=== PATIENT | female | born 1940 | race American Indian/Alaskan Native ===

== ENCOUNTER 2020-08-01 07:00 | Day surgery (SDC) | payer MEDICARE, OTHER ==
[2020-08-01] MEDS ORDERED: ceFAZolin/STERILE WATER 2 GM/20 ML SYRINGE IV NR (08:30)
[2020-08-01] MEDS ORDERED: LACTATED RINGERS 1,000 ML IV SCH (09:00)
--- NOTE | 2020-08-01 09:03 | Anesthesia Day of Surgery ---
Anesthesia Day of Surgery - Day of Surgery Patient Examined: Yes Patient H&P Reviewed: Yes Patient is NPO: Yes
--- NOTE | 2020-08-01 09:03 | Anesthesia Consultation ---
Anesthesia Consult and Med Hx Date of service: 08/01/20 - Airway Anesthetic Teeth Evaluation: Partials ROM Head & Neck: Adequate Mental/Hyoid Distance: Adequate Mallampati Class: Class I Intubation Access Assessment: Good - Pre-Operative Health Status ASA Pre-Surgery Classification: ASA2 Proposed Anesthetic Plan: General - Pulmonary Hx Smoking: No Hx Asthma: No Hx Respiratory Symptoms: No (+2FS) COPD: No Hx Pneumonia: No Hx Sleep Apnea: No (LUKAS PRE SCREEN LOW RISK) - Cardiovascular System Hx Hypertension: No Hx Heart Attack/AMI: No Hx Pacemaker: No Hx Internal Defibrillator: No Hx Heart Murmur: No - Central Nervous System Hx Seizures: No Hx Back Pain: No Hx Psychiatric Problems: No - Gastrointestinal Hx Gastroesophageal Reflux Disease: No - Endocrine Hx End Stage Renal Disease: No Hx Cirrhosis: No Hx Liver Disease: No Hx Thyroid Disease: Yes Hx Hypothyroidism: Yes - Hematic Hx Anemia: No Hx Sickle Cell Disease: No - Other Systems Hx Alcohol Use: No Hx Substance Use: No Hx Cancer: No Hx Obesity: No
[2020-08-01] MEDS ORDERED: HYDROmorphone 1 MG/1 ML INJ IV PRN ×2 (09:04)
[2020-08-01] MEDS ORDERED: ONDANSETRON 4 MG/2 ML INJ IV PRN (09:04)
[2020-08-01] MEDS ORDERED: fentaNYL 100 MCG/2 ML INJ ONE (09:31)
[2020-08-01] MEDS ORDERED: GLYCOPYRROLATE 0.4 MG/2 ML INJ ONE (09:31)
[2020-08-01] MEDS ORDERED: PHENYLEPHRINE/NS 1,000 MCG/10 ML SYRINGE (OR USE) IV ONE (09:31)
[2020-08-01] MEDS ORDERED: ONDANSETRON 4 MG/2 ML INJ ONE (09:31)
[2020-08-01] MEDS ORDERED: propofoL 200 MG/20 ML VIAL IV ONE (09:31)
[2020-08-01] MEDS ORDERED: LIDOCAINE MPF (2%) 20 MG/1 ML VIAL 5 ML ONE (09:31)
[2020-08-01] MEDS ORDERED: dexAMETHasone 20 MG/5 ML VIAL ONE (09:31)
[2020-08-01] MEDS ORDERED: WATER FOR IRRIG STERILE 2000 ML IR ONE ×2 (09:37)
[2020-08-01] MEDS ORDERED: WATER FOR IRRIG STERILE 1,500 ML BOTTLE IR ONE (09:37)
--- NOTE | 2020-08-01 11:25 | Fluoroscopy Report ---
Retrograde urography fluoroscopy INDICATION: Acute pelvic pain cystitis. Hematuria. IMPRESSION: Bilateral retrograde ureterograms performed which demonstrated no significant filling def ect aside from injected gas. Urinary bladder was only partially fluid distended Fluoroscopy time: 31 seconds. Fluoroscopic images: 6. Signer Name: Ravi Terrell MD Signed: 08/01/2020 11:20 AM Workstation Name: [id number]
--- NOTE | 2020-08-01 11:46 | Operative Report ---
PREOPERATIVE DIAGNOSIS: Suprapubic bladder pain. POSTOPERATIVE DIAGNOSES: Suprapubic bladder pain with the lesion, erythema anterior wall where the pain is. PROCEDURES: Cystoscopy, multiple bladder biopsies, excision and fulguration of anterior wall lesion, which was flat and erythematous and insertion of catheter retrograde. SURGEON: Dr. Billings. ANESTHESIA: General. FINDINGS: This is a woman with suprapubic pain and discomfort, especially with voiding. She now presents for treatment. DESCRIPTION OF PROCEDURE: The patient was brought to the operating room and placed on the operating table. Following induction of anesthesia, placed in lithotomy position, prepped and draped in usual sterile fashion. Cystourethroscopy showed this irregular reddened area anterior wall of the bladder. This was biopsied and very friable. It started bleeding before and just by distending the bladder. We cauterized it. The right and left lateral wall biopsies were obtained, which were random. Retrograde showed good filling, good drainage with some air bubbles on the left side. The patient tolerated the procedure well. A 20-German catheter was placed, brought to recovery in stable condition. JOB# [id number] GRIFFIN/OLIVIA
[2020-08-01] MEDS ORDERED: HYDROcodone/ACETAMINOPHEN 5-325 MG TAB PO PRN (11:48)
--- NOTE | 2020-08-01 11:50 | Discharge Summary ---
Short Stay Discharge Plan Activity: other (no staining ) Weight Bearing Status: Full Weight Bearing Diet: regular, low fat Special Instructions: other (inc fluids ) Durable Medical Equipment Needed Upon Discharge: other (teach schreiber care ) Follow up with: SUZANNE ADAMS MD [Primary Care Provider] - 7 Days ALICE HURD MD [Staff Physician] - 3 Days
--- NOTE | 2020-08-01 11:51 | Post Operative Note ---
Date of procedure: 08/01/20 Pre-op diagnosis: pain heme Post-op diagnosis: same Findings: lesion Procedure: cysto bx rpgs Anesthesia: GETA Surgeon: ALICE HURD Estimated blood loss: minimal Pathology: list (bladder) Specimen disposition: to lab Condition: stable Disposition: PACU
--- NOTE | 2020-08-01 12:44 | Post Anesthesia Evaluation ---
- Post Anesthesia Evaluation Patient Participated: Yes Airway Patent: Yes Stable Respiratory Function: Yes Nausea/Vomiting: No Temp > 96.8F: Yes Pain Manageable: Yes Anesthesia Complications: No Block Receding Appropriately: Not Applicable Patient on Ventilator: No
[2020-08-02 10:44] VITALS: BP 130/78
== END 2020-08-01 07:01 | disposition home or self-care (01) ==
LOC: OR 07:00
PROVIDERS: ATTEND Urology
DX: R39.89 Other symptoms and signs involving the genitourinary system (principal); R10.2 Pelvic and perineal pain; N32.89 Other specified disorders of bladder; N30.91 Cystitis, unspecified with hematuria; H40.9 Unspecified glaucoma; M19.90 Unspecified osteoarthritis, unspecified site; E03.9 Hypothyroidism, unspecified; Z86.19 Personal history of other infectious and parasitic diseases; Z79.899 Other long term (current) drug therapy; Z98.42 Cataract extraction status, left eye; Z98.41 Cataract extraction status, right eye; Z90.49 Acquired absence of other specified parts of digestive tract; Z90.710 Acquired absence of both cervix and uterus; Z98.891 History of uterine scar from previous surgery; Z87.440 Personal history of urinary (tract) infections; Z98.890 Other specified postprocedural states
CPT/HCPCS: 52204; 74420; 88304; 88305; A4217; C1758; J0690; J1100; J1170; J2370; J2405; J2704; J3010; J7120; Q9967; U0003; 88112

== ENCOUNTER 2020-12-28 11:04 | Day surgery (SDC) | payer MEDICARE, OTHER ==
[~2020-12-28 11:04] MED LIST: LACTATED RINGERS 1,000 ML IV SCH
--- NOTE | 2020-12-28 12:01 | Anesthesia Consultation ---
Anesthesia Consult and Med Hx Date of service: 12/28/20 - Airway Anesthetic Teeth Evaluation: Dentures ROM Head & Neck: Adequate Mental/Hyoid Distance: Adequate Mallampati Class: Class II Intubation Access Assessment: Probably Good - Pre-Operative Health Status ASA Pre-Surgery Classification: ASA2 Proposed Anesthetic Plan: General - Pulmonary Hx Smoking: No Hx Respiratory Symptoms: No Hx Sleep Apnea: No (LUKAS PRE SCREEN LOW RISK) - Cardiovascular System Hx Hypertension: No Hx Heart Attack/AMI: No Hx Percutaneous Transluminal Coronary Angioplasty (PTCA): No Hx Cardia Arrhythmia: No - Central Nervous System CVA: No - Endocrine Hx Renal Disease: No Hx Liver Disease: No Hx Insulin Dependent Diabetes: No Hx Non-Insulin Dependent Diabetes: No Hx Hypothyroidism: Yes - Other Systems Hx Obesity: No - Additional Comments Anesthesia Medical History Comments: No hx anesthetic complications.
--- NOTE | 2020-12-28 12:01 | Anesthesia Day of Surgery ---
Anesthesia Day of Surgery - Day of Surgery Patient Examined: Yes Patient H&P Reviewed: Yes Patient is NPO: Yes
[2020-12-28] MEDS ORDERED: ONDANSETRON 4 MG/2 ML INJ IV PRN (12:30)
[2020-12-28] MEDS ORDERED: HYDROcodone/ACETAMINOPHEN 5-325 MG TAB PO PRN (12:30)
[2020-12-28] MEDS ORDERED: fentaNYL 100 MCG/2 ML INJ IV PRN (12:30)
[2020-12-28] MEDS ORDERED: ceFAZolin/Water 2 GM/20 ML 2 GM/20 ML SYRINGE IV NR (13:00)
[2020-12-28] MEDS ORDERED: propofoL 200 MG/20 ML VIAL IV ONE (14:20)
[2020-12-28] MEDS ORDERED: LIDOCAINE MPF (2%) 20 MG/1 ML VIAL 5 ML ONE (14:20)
[2020-12-28] MEDS ORDERED: fentaNYL 100 MCG/2 ML INJ ONE (14:20)
[2020-12-28] MEDS ORDERED: FUROSEMIDE 40 MG/4 ML INJ ONE (15:00)
[2020-12-28] MEDS ORDERED: PHENYLEPHRINE/NS 1,000 MCG/10 ML SYRINGE (OR USE) IV ONE (15:00)
[2020-12-28] MEDS ORDERED: ONDANSETRON 4 MG/2 ML INJ ONE (15:01)
--- NOTE | 2020-12-28 15:05 | Post Operative Note ---
Date of procedure: 12/28/20 Pre-op diagnosis: lesion ulcer Post-op diagnosis: same Findings: same Procedure: cysto bx fulg Anesthesia: GETA Surgeon: ALICE HURD Estimated blood loss: minimal Pathology: list (bladder lesion) Specimen disposition: to lab Condition: stable Disposition: PACU
--- NOTE | 2020-12-28 15:07 | Discharge Summary ---
Short Stay Discharge Plan Activity: other (no straining ) Weight Bearing Status: Full Weight Bearing Diet: regular, low fat, low cholesterol, low salt Special Instructions: other (inc fluids ) Durable Medical Equipment Needed Upon Discharge: other (schreiber ) Follow up with: SUZANNE ADAMS MD [Primary Care Provider] - 7 Days ALICE HURD MD [Staff Physician] - 12/30/20
[2020-12-28 16:20] VITALS: BP 134/86
--- NOTE | 2020-12-28 16:20 | Post Anesthesia Evaluation ---
- Post Anesthesia Evaluation Patient Participated: Yes Airway Patent: Yes Stable Respiratory Function: Yes Nausea/Vomiting: No Temp > 96.8F: Yes Pain Manageable: Yes Adequeate Hydration: Yes Anesthesia Complications: No
--- NOTE | 2020-12-28 18:20 | Operative Report ---
DATE OF SURGERY: 12/28/2020 PREOPERATIVE DIAGNOSES: Bladder lesions, ulcers. POSTOPERATIVE DIAGNOSES: Bladder lesions, ulcers. PROCEDURE: Cystoscopy, bladder biopsies and cytology. Examination under anesthesia. SURGEON: Dr. Billings ANESTHESIA: General. FINDINGS: This is a woman who has severe suprapubic pain. This went away for about 4 to 6 weeks after the last treatment and the pathology was benign. It was even sent to [facility]. Pain is severe with a full bladder. This may be interstitial cystitis, although she is 80 years old. She now presents for repeat biopsies. DESCRIPTION OF PROCEDURE: The patient was brought to the OR and placed on the operating table. Following induction of anesthesia, placed in lithotomy position, prepped and draped in usual sterile fashion. The erythema was prominent in the anterior part of the bladder. When we distended it, the bladder began cracking. Biopsies were obtained. The area was cauterized. We placed a 20-Japanese catheter. She really does not want it. I think it should stay for a few days, but if she insisted that we can try taking it out. The patient tolerated the procedure well. I would like this to heal. There were no complications. No significant bleeding. Minimal blood loss. Specimen sent to pathology. Brought to recovery in stable condition. TID: [id number] RECEIPT: [id number] YVETTE
== END 2020-12-28 17:00 | disposition home or self-care (01) ==
LOC: OR 11:04
PROVIDERS: ATTEND Urology
DX: N32.89 Other specified disorders of bladder (principal); N30.01 Acute cystitis with hematuria; M19.90 Unspecified osteoarthritis, unspecified site; E03.9 Hypothyroidism, unspecified; H40.9 Unspecified glaucoma; Z20.822 Contact with and (suspected) exposure to COVID-19; Z79.899 Other long term (current) drug therapy; Z98.49 Cataract extraction status, unspecified eye; Z90.49 Acquired absence of other specified parts of digestive tract; Z90.710 Acquired absence of both cervix and uterus; Z98.891 History of uterine scar from previous surgery; Z87.440 Personal history of urinary (tract) infections; Z98.890 Other specified postprocedural states
CPT/HCPCS: 52204; 82962; 87086; 88305; C1758; J0690; J1940; J2370; J2405; J2704; J3010; J7120; U0003; 88313